=== PATIENT | male | born 1960 | race Caucasian/White ===

== ENCOUNTER → 2017-01-10 | Outpatient (CLI) | payer OTHER ==
[2012-11-09 10:55] VITALS: BP 133/78
[~2017-01-10] MED LIST: ASPIRIN E.C. 8181 M1 PO; CARDI-OMEGA1000 MG PO; CINNAMON500 MG PO; DUO-KAPS1 CAP PO; RED RICE YEAST E0.4% PO; VITAMIN C500 MG PO
== END ==
LOC: LAB 08:04
DX: Z13.1 Encounter for screening for diabetes mellitus (principal); Z13.6 Encounter for screening for cardiovascular disorders; Q84.5 Enlarged and hypertrophic nails

== ENCOUNTER → 2017-01-12 | Outpatient (CLI) | payer OTHER ==
[2012-11-09 10:55] VITALS: BP 133/78
== END ==
LOC: LAB 09:46
DX: Z00.00 Encounter for general adult medical examination without abnormal findings (principal); K21.9 Gastro-esophageal reflux disease without esophagitis; L40.9 Psoriasis, unspecified; M77.11 Lateral epicondylitis, right elbow; Z86.19 Personal history of other infectious and parasitic diseases; Z13.6 Encounter for screening for cardiovascular disorders

== ENCOUNTER → 2017-12-26 | Outpatient (CLI) | payer OTHER ==
[2012-11-09 10:55] VITALS: BP 133/78
== END ==
LOC: LAB 16:19
DX: R55 Syncope and collapse (principal)

== ENCOUNTER → 2018-04-10 | Outpatient (CLI) | payer OTHER ==
[2012-11-09 10:55] VITALS: BP 133/78
== END ==
LOC: CARDREHAB 07:50
DX: R55 Syncope and collapse (principal); E78.5 Hyperlipidemia, unspecified; R03.0 Elevated blood-pressure reading, without diagnosis of hypertension

== ENCOUNTER → 2018-05-13 | Outpatient (CLI) | payer OTHER ==
[2012-11-09 10:55] VITALS: BP 133/78
[2018-05-13 10:13] LABS: TOTAL BILIRUBIN 1.9 mg/dL (0.2-1.3); TOTAL PROTEIN 7.2 g/dL (6.3-8.2)
[2018-05-13 10:54] LABS: ALBUMIN 4.3 g/dL (3.5-5.0)
== END ==
LOC: LAB 09:33
PROVIDERS: Family Medicine
DX: Z12.5 Encounter for screening for malignant neoplasm of prostate (principal); Z13.1 Encounter for screening for diabetes mellitus; Z23 Encounter for immunization; Z00.00 Encounter for general adult medical examination without abnormal findings; K21.9 Gastro-esophageal reflux disease without esophagitis; B35.6 Tinea cruris; R13.10 Dysphagia, unspecified; L40.9 Psoriasis, unspecified; E78.5 Hyperlipidemia, unspecified

== ENCOUNTER → 2019-01-11 | Outpatient (CLI) | payer OTHER ==
[2012-11-09 10:55] VITALS: BP 133/78
[2019-01-11 07:48] LABS: HEMATOCRIT 47.2 % (42.0-52.0); HEMOGLOBIN 15.7 g/dL (13.5-18.0); MEAN PLATELET VOLUME 9.8 fl (7.4-10.4); RED BLOOD COUNT 5.36 M/mm3 (4.20-5.60); RED CELL DISTRIBUTION WIDTH 13.5 % (11.5-14.5); WHITE BLOOD COUNT 7.8 K/mm3 (4.8-10.8)
[2019-01-11 07:50] LABS: POTASSIUM 3.7 mmol/L (3.5-5.1)
[2019-01-11 07:52] LABS: TOTAL PROTEIN 7.6 g/dL (6.4-8.3)
== END ==
LOC: LAB 07:30
PROVIDERS: Family Medicine
DX: Z12.5 Encounter for screening for malignant neoplasm of prostate (principal); R53.83 Other fatigue; E78.5 Hyperlipidemia, unspecified; R73.03 Prediabetes

== ENCOUNTER → 2019-12-28 | Outpatient (CLI) | payer OTHER ==
[2012-11-09 10:55] VITALS: BP 133/78
[2019-12-28 10:40] LABS: URINE WBC 0 /hpf (0-3)
[2019-12-28 11:21] LABS: ALBUMIN 4.1 g/dL (3.5-5.0)
[2019-12-28 11:22] LABS: CALCIUM 8.7 mg/dL (8.3-10.5)
[2019-12-28 11:24] LABS: TOTAL PROTEIN 7.6 g/dL (6.4-8.3)
[2019-12-28 11:25] LABS: TOTAL BILIRUBIN 1.7 mg/dL (0.2-1.2)
[2019-12-28 11:57] LABS: PH-URINE 6.5 (5.0 - 8.0); URINE APPEARANCE CLEAR; URINE BILIRUBIN NEGATIVE (NEGATIVE); URINE BLOOD NEGATIVE (NEGATIVE); URINE COLOR YELLOW; URINE GLUCOSE NEGATIVE (NEGATIVE); URINE KETONE NEGATIVE (NEGATIVE); URINE LEUKOCYTE ESTERASE NEGATIVE (NEGATIVE); URINE MUCUS PRESENT (NOT PRESENT); URINE NITRATE NEGATIVE (NEGATIVE); URINE PROTEIN(semi-quant) NEGATIVE (NEGATIVE); URINE UROBILINOGEN NORMAL (NORMAL)
[2019-12-28 12:25] LABS: HEMATOCRIT 49.3 % (42.0-52.0); HEMOGLOBIN 16.5 g/dL (13.5-18.0); MEAN PLATELET VOLUME 10.3 fl (7.4-10.4); RED BLOOD COUNT 5.55 M/mm3 (4.20-5.60); RED CELL DISTRIBUTION WIDTH 13.4 % (11.5-14.5); WHITE BLOOD COUNT 6.4 K/mm3 (4.8-10.8)
== END ==
LOC: LAB 10:21
PROVIDERS: Family Medicine
DX: Z00.00 Encounter for general adult medical examination without abnormal findings (principal); Z12.5 Encounter for screening for malignant neoplasm of prostate; Z13.6 Encounter for screening for cardiovascular disorders; E78.5 Hyperlipidemia, unspecified; R73.03 Prediabetes; R53.83 Other fatigue

== ENCOUNTER → 2021-02-06 | Outpatient (CLI) | payer OTHER ==
[2021-02-06 10:14] LABS: HEMATOCRIT 48.5 % (42.0-52.0); HEMOGLOBIN 16.1 g/dL (13.5-18.0); MEAN PLATELET VOLUME 9.7 fl (7.4-10.4); RED BLOOD COUNT 5.44 M/mm3 (4.20-5.60); RED CELL DISTRIBUTION WIDTH 12.9 % (11.5-14.5); WHITE BLOOD COUNT 5.7 K/mm3 (4.8-10.8)
[2021-02-06 10:15] LABS: POTASSIUM 3.9 mmol/L (3.5-5.1); SODIUM 142 mmol/L (136-145)
[2021-02-06 10:16] LABS: CALCIUM 9.4 mg/dL (8.3-10.5)
[2021-02-06 10:18] LABS: GLUCOSE 108 mg/dL (75-110); TOTAL PROTEIN 7.2 g/dL (6.4-8.3)
[2021-02-06 10:19] LABS: CARBON DIOXIDE 25 mmol/L (22-29); TOTAL BILIRUBIN 1.9 mg/dL (0.2-1.2)
[2021-02-06 10:23] LABS: AST-SGOT 19 U/L (5-34)
[2021-02-06 10:24] LABS: ALT/SGPT 20 U/L (0-55)
== END ==
LOC: LAB 09:36
PROVIDERS: Family Medicine
DX: Z00.00 Encounter for general adult medical examination without abnormal findings (principal); Z12.5 Encounter for screening for malignant neoplasm of prostate; Z13.1 Encounter for screening for diabetes mellitus; Z13.220 Encounter for screening for lipoid disorders; E78.5 Hyperlipidemia, unspecified; L40.4 Guttate psoriasis; E80.6 Other disorders of bilirubin metabolism; M25.522 Pain in left elbow; R53.83 Other fatigue

== ENCOUNTER → 2021-05-05 | Outpatient (CLI) | payer OTHER ==
[2021-05-05 12:18] LABS: ALBUMIN 4.2 g/dL (3.5-5.0)
[2021-05-05 12:21] LABS: TOTAL PROTEIN 7.2 g/dL (6.4-8.3)
[2021-05-05 12:23] LABS: TOTAL BILIRUBIN 2.1 mg/dL (0.2-1.2)
[2021-05-05 12:26] LABS: DIRECT BILIRUBIN 0.6 mg/dL (0.0-0.5)
== END ==
LOC: LAB 11:19
PROVIDERS: Family Medicine
DX: E55.9 Vitamin D deficiency, unspecified (principal); L40.4 Guttate psoriasis; E80.6 Other disorders of bilirubin metabolism

== ENCOUNTER → 2022-01-05 | Outpatient (CLI) | payer OTHER ==
[2022-01-05 11:12] LABS: POTASSIUM 4.1 mmol/L (3.5-5.1)
[2022-01-05 11:13] LABS: ALBUMIN 4.1 g/dL (3.4-4.8)
[2022-01-05 11:14] LABS: CALCIUM 9.1 mg/dL (8.3-10.5)
[2022-01-05 11:15] LABS: TOTAL PROTEIN 7.3 g/dL (6.2-8.1)
[2022-01-05 11:17] LABS: TOTAL BILIRUBIN 1.8 mg/dL (0.2-1.2)
[2022-01-05 11:22] LABS: MAGNESIUM 1.97 mg/dL (1.60-2.60)
== END ==
LOC: LAB 10:13
PROVIDERS: Family Medicine
DX: Z00.00 Encounter for general adult medical examination without abnormal findings (principal); Z12.5 Encounter for screening for malignant neoplasm of prostate; Z13.1 Encounter for screening for diabetes mellitus; Z13.220 Encounter for screening for lipoid disorders; E78.5 Hyperlipidemia, unspecified; E80.6 Other disorders of bilirubin metabolism; L40.4 Guttate psoriasis; M25.522 Pain in left elbow; E60 Dietary zinc deficiency; E55.9 Vitamin D deficiency, unspecified

== ENCOUNTER → 2023-09-20 | Outpatient (CLI) | payer OTHER ==
[2023-09-20 21:49] LABS: HEPATITIS C VIRUS ANTIBODY Negative (Negative)
== END ==
LOC: LAB 10:46
PROVIDERS: Family Medicine
DX: Z13.1 Encounter for screening for diabetes mellitus (principal); Z11.59 Encounter for screening for other viral diseases; Z11.4 Encounter for screening for human immunodeficiency virus [HIV]; E78.2 Mixed hyperlipidemia